=== PATIENT | male | born 1985 | race Caucasian/White ===

== ENCOUNTER 2023-02-06 23:45 | Emergency (ER) | payer OTHER ==
[~2023-02-06] VITALS: Ht 170.2 cm; Wt 117.9 kg
[2023-02-07 00:08] VITALS: BP_SYST 132
--- NOTE | 2023-02-07 00:15 | NUR ---
Patient triaged and placed in waiting room. VS checked and patient appears in no acute distress at this time. Accompanied by self , awaiting available bed, and MD notified of need for MSE.
--- NOTE | 2023-02-07 00:19 | NUR ---
patient o bed 3 for evaluation and treatment
--- NOTE | 2023-02-07 00:24 | NUR ---
FIRST CONTACT WITH PT. ASSESSMENT COMPLETED. AWAITING EVAL AND ORDERS.
[2023-02-07] MEDS ORDERED: LIDOCAINE PATCH 5% 1 EA TP ONE (00:30)
[2023-02-07] MEDS ORDERED: KETOROLAC TROMETHAMINE 30 MG VIAL IM ONE (00:30)
[2023-02-07] MEDS ORDERED: HYDROcodone/ACETAMIN 5-325 MG TAB (NORCO/ VICODIN) PO ONE (00:30)
[2023-02-07] MEDS ORDERED: METHOCARBAMOL 1000 MG/10 ML VIAL IM ONE (00:30)
--- NOTE | 2023-02-07 02:00 | NUR ---
PT RESTING QUIETLY WITH NO SIGNS OF ACUTE DISTRESS.
[2023-02-07 02:57] LABS: BILIRUBIN,URINE NEGATIVE (NEGATIVE); BLOOD, URINE 1+ (NEGATIVE); CLARITY/URINE CLEAR (CLEAR); COLOR,URINE YELLOW (YELLOW); GLUCOSE,URINE NEGATIVE (NEGATIVE); KETONES,URINE NEGATIVE (NEGATIVE); LEUKOCYTE ESTERASE ,URINE NEGATIVE (NEGATIVE); NITRITE, URINE NEGATIVE (NEGATIVE); PROTEIN URINE NEGATIVE (NEGATIVE); UROBILINOGEN,URINE 0.2 (0.2-1.0)
[2023-02-07 03:18] LABS: BACTERIA,URINE RARE /HPF (None Seen); RBC,URINE 0-3 /HPF (0-3); WBC,URINE 0-3 /HPF (0-3)
[2023-02-07] MEDS ORDERED: HYDR-3917 PO (03:42)
[2023-02-07] MEDS ORDERED: METH-776 PO (03:42)
[2023-02-07] MEDS ORDERED: METH-634 PO (03:42)
--- NOTE | 2023-02-07 03:45 | NUR ---
Patient given written and verbal discharge instructions and verbalizes understanding. ER MD PITTS discussed with patient the results and treatment provided. Patient in stable condition. ID arm band removed. IV catheter removed intact and dressing applied, no active bleeding. Rx of NORCO, MEDROL AND ROBAXIN given. Patient educated on pain management and to follow up with PMD. Pain Scale . Opportunity for questions provided and answered. Medication side effect fact sheet provided.
[2023-02-07 03:48] VITALS: BP_SYST 130
== END 2023-02-07 03:59 | disposition home or self-care (01) ==
LOC: SED 23:45
DX: M54.50 Low back pain, unspecified (principal); Z79.899 Other long term (current) drug therapy
CPT/HCPCS: 99284; 81000; 96372; J1885; J2800